=== PATIENT | female | born 1970 | race Caucasian/White ===

== ENCOUNTER 2023-01-03 13:26 | Day surgery (SDC) | payer BC ==
[~2023-01-03] VITALS: Ht 162.6 cm; Wt 84.5 kg
[~2023-01-03 13:26] MED LIST: ALEVE 220MG220 MG PO; LEVOTHYROXINE PO; LIPITOR 80MG80 MG PO
[2023-01-03 14:45] VITALS: BP 114/76; PULSE 87; TEMP 98.3
[2023-01-03] MEDS ORDERED: CELEXA40 MG PO (15:30)
[2023-01-03] MEDS ORDERED: FLONASEALLERGY NS (15:31)
[2023-01-03] MEDS ORDERED: GLUCOTROL10 MG PO (15:32)
[2023-01-03] MEDS ORDERED: SYNTHROID0.125 MG/T PO (15:33)
[2023-01-03] MEDS ORDERED: HCTZ12.5TAB PO (15:33)
[2023-01-03] MEDS ORDERED: COZAAR100 MG PO (15:34)
[2023-01-03] MEDS ORDERED: GLUCOPHAGE500 MG/TAB PO (15:34)
[2023-01-03] MEDS ORDERED: PROTONIX20 MG PO (15:35)
[2023-01-03] MEDS ORDERED: AZO URINARY PAI95 MG PO (15:35)
[2023-01-03 17:00] VITALS: BP 104/62; PULSE 73; TEMP 96.8
--- NOTE | 2023-01-03 17:00 | NUR ---
PATIENT AMBULATED FROM CART TO CHAIR WITH STANDBY ASSISTANCE. GAIT STEADY. PATIENT ALERT AND ORIENTED, DENIES PAIN AND NAUSEA. BREATHING REGULAR AND UNLABORED. NURSE HANDOFF COMPLETED IN ROOM. PATIENT HAD WATER AND SALTINES, BOTH TOLERATED WELL WITH NO DYSPHAGIA. MET WITH PATIENT TO DISCUSS PROCEDURE. CALL LIGHT IN REACH.
[2023-01-03 17:15] VITALS: BP 115/73; PULSE 74
[2023-01-03 17:28] VITALS: BP 120/76; PULSE 76
--- NOTE | 2023-01-03 17:28 | NUR ---
PATIENT ALERT AND ORIENTED, TOLERATING FOOD AND DRINK. DENIES PAIN AND NAUSEA. PATIENT PARENTS IN ROOM. DISCHARGE TEACHING COMPLETED WITH PRINTED EDUCATION AND INSTRUCTIONS SENT HOME WITH PATIENT. PATIENT VERBALIZED UNDERSTANDING OF TEACHING. IV REMOVED. PATIENT CHANGED INTO PERSONAL CLOTHING AND WAS DISCHARGED HOME WITH PARENTS TRANSPORT.
== END 2023-01-03 17:30 | disposition home or self-care (01) ==
LOC: SDCO 13:26
DX: R19.7 Diarrhea, unspecified (principal); R19.5 Other fecal abnormalities; R11.2 Nausea with vomiting, unspecified; R10.84 Generalized abdominal pain; E11.9 Type 2 diabetes mellitus without complications; Z79.4 Long term (current) use of insulin; Z79.84 Long term (current) use of oral hypoglycemic drugs; Z79.899 Other long term (current) drug therapy
CPT/HCPCS: J2704; J7120